=== PATIENT | male | born 1940 | race Caucasian/White ===

== ENCOUNTER → 2017-11-10 | Outpatient (CLI) | payer OTHER ==
--- NOTE | 2017-11-10 17:02 | CPEEG ---
[f rep st] ELECTROENCEPHALOGRAM 4-HOUR VIDEO ELECTROENCEPHALOGRAM DATE OF STUDY: 11/10/2017 INTERPRETATION: This 4-hour video EEG recording is normal. There were no potentially epileptogenic abnormalities present during the awake or sleep recordings. During the video EEG monitoring session, the patient did not have any clinical events. REPORT: This 4-hour video EEG contains 10 Hz alpha activity over the posterior head regions. There was no abnormal activation at rest, during photic stimulation or hyperventilation. The patient becam e drowsy and fell asleep during the study. There was no abnormal activation during drowsiness, sleep , or during times of arousal. The patient did not have any clinical events during the video EEG cory toring session. /[id number]/[id number]
== END ==
LOC: FCPNEURO 09:44
PROVIDERS: ATTEND Psychiatry & Neurology Neurology
DX: R40.20 Unspecified coma (principal)

== ENCOUNTER → 2018-02-23 | Outpatient (CLI) | payer OTHER | LOC: FIMAGING 16:15 | PROVIDERS: ATTEND Family Medicine | DX: M79.89 Other specified soft tissue disorders (principal); R60.9 Edema, unspecified ==